=== PATIENT | female | born 1960 | race Caucasian/White ===

== ENCOUNTER 2017-09-02 16:52 | Emergency (ER) | payer MEDICAID, OTHER ==
[2017-09-02] MEDS: METOCLOPRAMIDE (1 MG/ML) 10 ML CUP PO (20:31)
[2017-09-02] MEDS: KETOROLAC 15 MG INJ IM (20:31)
== END 2017-09-02 23:03 | disposition home or self-care (01) ==
LOC: FTE 16:52
DX: G44.89 Other headache syndrome (principal)
CPT/HCPCS: 96372; 99284-25; J1885